=== PATIENT | female | born 1970 | race Caucasian/White ===

== ENCOUNTER → 2023-10-18 | Outpatient (CLI) | payer OTHER ==
[~2023-10-18] MED LIST: IOHEXOL 350 MG/ML 100ML INFUS..BTL IV ONE
== END | disposition home or self-care (01) ==
LOC: RAH 09:16
PROVIDERS: ATTEND Family Medicine
DX: R06.09 Other forms of dyspnea (principal); R00.1 Bradycardia, unspecified; E78.5 Hyperlipidemia, unspecified; E88.819 Insulin resistance, unspecified; R01.1 Cardiac murmur, unspecified; R94.39 Abnormal result of other cardiovascular function study
CPT/HCPCS: 75574; Q9967

== ENCOUNTER 2023-11-07 07:47 | Day surgery (SDC) | payer OTHER ==
[2023-11-07] VITALS (10 sets, daily range): BP systolic 101–118; BP diastolic 62–76; PULSE 46–59; RESP 13–17
[~2023-11-07] VITALS: Ht 167.6 cm; Wt 80.3 kg
[2023-11-07] MEDS ORDERED: METF-444 PO (10:41)
[2023-11-07] MEDS ORDERED: VITAMIN D PO (10:42)
[2023-11-07] MEDS: 0.9%NACL 1000ML 1,000 ML IV ONE (10:52)
[2023-11-07] MEDS ORDERED: PROPOFOL 10 MG/ML 20ML VIAL IV ONE (11:21)
[2023-11-07] MEDS ORDERED: GLYCOPYRROLATE 0.2 MG/ML 5 ML VIAL ONE (11:28)
== END 2023-11-07 12:50 | disposition home or self-care (01) ==
LOC: ENDO 07:47
PROVIDERS: ATTEND Internal Medicine
DX: Z12.11 Encounter for screening for malignant neoplasm of colon (principal); K63.5 Polyp of colon; E78.5 Hyperlipidemia, unspecified; E03.9 Hypothyroidism, unspecified; Z79.84 Long term (current) use of oral hypoglycemic drugs; Z90.49 Acquired absence of other specified parts of digestive tract; Z98.891 History of uterine scar from previous surgery; Z88.6 Allergy status to analgesic agent
CPT/HCPCS: 45385; 82948 ×2; 81025; J7030; J2704; J3490; A4620; A4215 ×2; A4223; A4222; A4221; A4663; A4606